=== PATIENT | male | born 1970 | race African-American/Black ===

== ENCOUNTER 2019-02-01 23:24 | Emergency (ER) | payer OTHER, MEDICAID ==
[~2019-02-01] VITALS: Ht 172.7 cm; Wt 58.0 kg
[2019-02-02] MEDS ORDERED: IBUPROFEN 600MG TABLET PO NR (01:00)
[2019-02-02] MEDS ORDERED: TETANUS, DIPHTHERIA, PERTUSSIS VAC/PF 0.5ML (>7YR OLD) IM ONE (01:00)
[2019-02-02 01:20] VITALS: BP 102/69
== END 2019-02-02 01:33 | disposition home or self-care (01) ==
LOC: ER 23:24
DX: S80.862A Insect bite (nonvenomous), left lower leg, initial encounter (principal); L03.116 Cellulitis of left lower limb; F17.200 Nicotine dependence, unspecified, uncomplicated; W57.XXXA Bitten or stung by nonvenomous insect and other nonvenomous arthropods, initial encounter; Y93.89 Activity, other specified; Y92.89 Other specified places as the place of occurrence of the external cause; Y99.8 Other external cause status
CPT/HCPCS: 90471; 90715; 99283